=== PATIENT | female | born 1945 | race Caucasian/White ===

== ENCOUNTER 2021-01-22 17:45 | Emergency (ER) | payer MEDICARE, SELFPAY ==
--- NOTE | ~2021-01-22 | XR_ITS ---
XR foot RT 2V 01/22/2021 19:08 Indication: Post reduction right third toe Procedure: 2 views right foot Comparison: 01/22/2021 Findings: Interval reduction of the third digit at the MTP joint. There is an ossific density medial to the joint, likely an avulsion fracture. Otherwise, no significant change. Possible healed stress f racture of the third metatarsal. Polyarticular osteoarthritis. Impression: 1: Anatomic alignment of the right third toe post reduction of the MTP joint. Small ossific density m edial to the joint likely reflects an avulsion fracture. Reviewed, dictated and finalized at location A. ER SPREADER Impression: 1: Anatomic alignment of the right third toe post reduction of the MTP joint. S mall ossific density medial to the joint likely reflects an avulsion fracture.
--- NOTE | ~2021-01-22 | XR_ITS ---
XR foot RT min 3V 01/22/2021 18:28 Indication: Right foot pain at MTP joints Procedure: 4 views right foot Comparison: No prior studies for comparison. Findings: There is moderate osteoarthritis of the first MTP joint with mild hallux valgus. There is s ubluxation of the third proximal phalanx at the MTP joint. There are prominent degenerative calcaneal enthesophytes and ossification of the Achilles tendon insertion. Moderate polyarticular degenerative change of the midfoot, MTP joints and IP joints. There is periosteal reaction along the third metata rsal which may reflect a healed stress fracture. Lisfranc joint intact. No acute fracture or traumati c malalignment. 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 Reviewed, dictated and finalized at location A. 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
[2021-01-22 17:50] VITALS: BP 131/60; PULSE 72; RESP 16; TEMP 36.7; O2SAT 99
[2021-01-22 18:56] VITALS: BP 130/70; PULSE 70; RESP 18; TEMP 36.7; O2SAT 99
--- NOTE | 2021-01-22 19:16 | ED.GENADULT ---
HPI - General Adult General Chief complaint: Extremity Injury, Lower Stated complaint: fall, right foot pain Time Seen by Provider: 01/22/21 18:14 Source: patient Mode of arrival: wheelchair Limitations: no limitations History of Present Illness HPI narrative: Patient presents with chief complaint of pain to her right second through fourth toes after tripping while trying to lay on the palate and getting her foot stuck. Patient reports that her toes appear deformed. She reports they are very tender. Patient denies any other injuries. Related Data Home Medications Medication Instructions Recorded Confirmed Cranberry Chews 01/22/21 allopurinol 300 mg PO DAILY 01/22/21 amlodipine-benazepril [Lotrel] 1 cap PO DAILY 01/22/21 ascorbic acid (vitamin C) [Vitamin 1 g PO Q6H 01/22/21 C] famotidine 10 mg PO BID 01/22/21 folic acid 0.4 mg PO DAILY 01/22/21 hydrochlorothiazide 12.5 mg PO DAILY 01/22/21 iron 65 tablet PO 01/22/21 ketoprofen 200 mg PO DAILY 01/22/21 potassium citrate 2,160 mg PO BID 01/22/21 vitamin B complex [B 1 tablet PO DAILY 01/22/21 Complex-Vitamin B12] Allergies Allergy/AdvReac Type Severity Reaction Status Date / Time amlodipine Allergy Other Verified 01/22/21 18:38 anastrozole Allergy Other Verified 01/22/21 18:38 carvedilol Allergy Other Verified 01/22/21 18:38 esomeprazole [From Nexium] Allergy Other Verified 01/22/21 18:38 iohexol Allergy Other Verified 01/22/21 18:38 [From contrast - CT, X-RAY] letrozole Allergy Other Verified 01/22/21 18:38 methenamine Allergy Rash Verified 01/22/21 18:38 montelukast Allergy Unknown Verified 01/22/21 18:38 valsartan [From Exforge] Allergy Unknown Verified 01/22/21 18:38 omeprazole AdvReac Headache Verified 01/22/21 18:38 silk tape Allergy Rash Uncoded 01/22/21 18:38 D-Mannose AdvReac Nausea and Uncoded 01/22/21 18:38 Vomiting Review of Systems Review of Systems: Narrative: CONSTITUTIONAL: Denies fever, chills, or sweats. EYES: Denies visual changes, redness, or discharge. ENT: Denies rhinorrhea, congestion, sore throat, or otalgia. CARDIOVASCULAR: Denies chest pain, palpitations, or edema. RESPIRATORY: Denies cough or dyspnea. GASTROINTESTINAL: Denies abdominal pain, nausea, vomiting, or diarrhea. GENITOURINARY: Denies dysuria or hematuria. SKIN: Denies rash or itching. MUSCULOSKELETAL: Reports right toe pain and deformity denies back pain or myalgia. NEUROLOGIC: Denies headache, numbness, dizziness, or weakness. PSYCHIATRIC: Denies anxiety or depression. Exam Narrative: Exam Narrative: GENERAL: Well-appearing, well-nourished, and in no acute distress. HEAD: Normocephalic, atraumatic. EYES: PERRLA and EOMI. NECK: Supple. Range of motion intact. CHEST: Clear to auscultation. No respiratory distress. No wheezes rales or rhonchi HEART: Regular rate and rhythm. EXTREMITIES:Ecchymosis to right 2-4th toes. Appear deformed and hyperflexed 2nd and 3rd. Patient likely has some chronic bert to toes as well. SKIN: Warm, dry, no rash. NEURO: No focal deficits. Alert and oriented x3. PSYCH: Normal mood and affect. Course Vital Signs Vital signs: Vital Signs Temperature 98.0 F 01/22/21 17:50 Pulse Rate 72 01/22/21 17:50 Respiratory Rate 16 01/22/21 17:50 Blood Pressure 131/60 01/22/21 17:50 Pulse Oximetry 99 01/22/21 17:50 Temperature 98.0 F 01/22/21 18:56 Pulse Rate 70 01/22/21 18:56 Respiratory Rate 18 01/22/21 18:56 Blood Pressure 130/70 01/22/21 18:56 Pulse Oximetry 99 01/22/21 18:56 Procedures Orthopedic Joint Reduction Joint #1: Side: right Joint Reduction Location: toe (3rd) Analgesia: none Pre-Procedure Neuro Vascular Exam: normal Technique used: traction/counter-traction Post-reduction neuro exam: intact Post-reduction vascular: intact Post Reduction X-Ray Obtained: Yes Post Reduction X-Ray Results: reduced
--- NOTE | 2021-01-22 19:28 | PC.NURSE ---
patient refused crutchs stating she has a walker at home which is easier for her to use.
[2021-01-22 20:14] VITALS: BP 142/68; PULSE 78; RESP 18; O2SAT 99
== END 2021-01-22 20:16 | disposition home or self-care (01) ==
LOC: ANHED 19:36
PROVIDERS: Emergency Provider Emergency Medicine; PCP Family Medicine
DX: S93.104A Unspecified dislocation of right toe(s), initial encounter (principal); W18.40XA Slipping, tripping and stumbling without falling, unspecified, initial encounter
CPT/HCPCS: 28630; 73620; 73630; 99285

== ENCOUNTER 2024-05-05 09:44 | Outpatient (CLI) | payer MEDICARE, SELFPAY ==
--- NOTE | ~2024-05-05 | CT_ITS ---
EXAMINATION: CT abdomen pelvis wo/w con DATE: 05/05/2024 10:37 INDICATION: Gross hematuria. TECHNIQUE: Computed tomography (CT) of the abdomen and pelvis was performed without and with intraven ous contrast using a total of 130 mL Omnipaque-350 intravenous contrast with a double-bolus technique for simultaneous opacification of the renal parenchyma and renal collecting system. Automated exposu re control and iterative reconstruction technique were employed. The dose-length product was 2110.92 mGy-cm. COMPARISON: None FINDINGS: The visualized portions of the lung bases demonstrate mild atelectasis. Calcified pulmonary nodules a re consistent with old granulomatous disease. No pleural effusion. The heart size is normal. No peric ardial effusion. Partially visualized is a left breast implant. Calcifications in the liver and splee n are consistent with old granulomatous disease. There are gallstones in the gallbladder, which is no rmal in size. There is a 16 mm cyst in the spleen. The pancreas and adrenal glands are normal. There are cysts in the kidneys measuring up to 3.8 cm on the right. There is cortical thinning of the kidne ys. There is no urolithiasis. The ureters are well opacified and are normal. The bladder is not well distended. There is diverticulosis of the colon without evidence of diverticulitis. There are no dila sol loops of bowel. The appendix is not visualized. There is a small sliding hiatal hernia. There are no pathologically enlarged lymph nodes. There is no free intraperitoneal fluid. There is severe thor acic and lumbar spondylosis. IMPRESSION: 1. No etiology for hematuria. Reviewed, dictated and finalized at location E.
[2024-05-05 10:09] LABS: Estimated Glomerular Filt Rate 44
== END 2024-05-05 09:45 ==
LOC: MICIMG 09:46
PROVIDERS: PCP Family Medicine; Visit Provider Physician Assistant
DX: R31.0 Gross hematuria (principal)
CPT/HCPCS: 74178; Q9967

== ENCOUNTER 2025-06-23 12:28 | Emergency (ER) | payer MEDICARE, SELFPAY ==
[2025-06-23 12:40] VITALS: BP 109/54; PULSE 74; RESP 18; TEMP 36.1; O2SAT 99
--- NOTE | 2025-06-23 12:43 | ED_ITS ---
HPI - Female Genitourinary General Chief complaint: Urogenital-Female Stated complaint: C/O PAINFUL URINATION Time Seen by Provider: 06/23/25 12:43 Source: patient and RN notes reviewed Mode of arrival: ambulatory Limitations: no limitations History of Present Illness HPI Narrative: 79-year-old female presented for complaint of burning with urination this morning, and endorses frequency and urgency over the past 3 days. Endorses a history of UTIs. Denies hematuria, nausea, vomiting, abdominal pain, flank pain, constipation, diarrhea, fevers or chills. Patient is scheduled for pituitary surgery in 5 days Related Data Home Medications ?Medication ?Instructions ?Recorded ?Confirmed ?Last Taken ?Type Cranberry Chews 01/22/21 01/29/21 Unknown History allopurinol 300 mg tablet 300 mg PO DAILY 01/22/21 01/29/21 Unknown History amlodipine 5 mg-benazepril 10 mg 1 cap PO DAILY 01/22/21 01/29/21 Unknown History capsule (Lotrel) ascorbic acid (vitamin C) 1,000 mg 1 g PO Q6H 01/22/21 01/29/21 Unknown History chewable tablet famotidine 10 mg tablet 10 mg PO BID 01/22/21 01/29/21 Unknown History folic acid 400 mcg tablet 0.4 mg PO DAILY 01/22/21 01/29/21 Unknown History hydrochlorothiazide 12.5 mg capsule 12.5 mg PO DAILY 01/22/21 01/29/21 Unknown History iron 50 mg iron tablet 65 tablet PO 01/22/21 01/29/21 Unknown History ketoprofen 200 mg 24 hr 200 mg PO DAILY 01/22/21 01/29/21 Unknown History capsule,extended release potassium citrate 10 mEq (1,080 2,160 mg PO BID 01/22/21 01/29/21 Unknown Hist ory mg) tablet,extended release vitamin B complex (B 1 tablet PO DAILY 01/22/21 01/29/21 Unknown History Complex-Vitamin B12 tablet) Allergies Allergy/AdvReac Type Severity Reaction Status Date / Time amlodipine Allergy Other Verified 06/23/25 12:29 anastrozole Allergy Other Verified 06/23/25 12:29 carvedilol Allergy Other Verified 06/23/25 12:29 esomeprazole (From Nexium) Allergy Other Verified 06/23/25 12:29 iohexol (From contrast - CT, Allergy Other Verified 06/23/25 12:29 X-RAY) letrozole Allergy Other Verified 06/23/25 12:29 methenamine Allergy Rash Verified 06/23/25 12:29 montelukast Allergy Unknown Verified 06/23/25 12:29 valsartan (From Exforge) Allergy Unknown Verified 06/23/25 12:29 omeprazole AdvReac Headache Verified 06/23/25 12:29 silk tape Allergy Rash Uncoded 06/23/25 12:29 D-Mannose AdvReac Nausea and Uncoded 06/23/25 12:29 Vomiting Review of Systems Review of Systems: CONSTITUTIONAL: Denies body aches, fever, chills, or sweats. CARDIOVASCULAR: Denies chest pain, palpitations, or edema. RESPIRATORY: Denies cough or dyspnea. GASTROINTESTINAL: Denies abdominal pain, nausea, vomiting, or diarrhea. GENITOURINARY: Reports dysuria, frequency, urgency, denies hematuria, flank pain, discharge SKIN: Denies rash, itching, or wounds. MUSCULOSKELETAL: Denies back pain or myalgia. [facility] Past Medical History Medical History Allergies Arthritis Breast cancer Endometrial cancer GERD (gastroesophageal reflux disease) Melanoma Thyroid disease Ulcer Family History Family History Mother Cancer Hypertension Heart disease Social History Social History Living arrangements: with family Occupation/Education: retired Gender identity (if verbalized by the patient): Female Comments At time of signature, I have reviewed and agree with nursing past medical, surgical, social and family history unless otherwise noted. Please see nursing chart for further information. There is no relevant family history pertinent to the presenting complaint Exam Narrative: GENERAL: Well-appearing and in no acute distress. ENT: Mucous membranes pink and moist. NECK: Normal AROM. Supple. CHEST: No respiratory distress. Clear to auscultation. HEART: Regular rate and rhythm. ABDOMEN: Soft, nontender, nondistended, normal active bowel sounds. No CVA tenderness SKIN: Warm, dry, no rash. NEURO: No focal deficits. Alert and oriented x3. Gait steady. PSYCH: Normal affect. Course Course Emergency Course: Patient is aware of diagnosis, understands and agrees to treatment plan. Anticipatory guidance given. Patient agrees to follow-up as directed and is aware of reasons to seek care at the emergency department. Portions of this record may have been created with voice recognition software Level of Care: Express Care Visit Vital Signs Vital signs: Vital Signs Temperature 96.9 F L 06/23/25 12:40 Pulse Rate 74 06/23/25 12:40 Respiratory Rate 18 06/23/25 12:40 Blood Pressure 109/54 L 06/23/25 12:40 Pulse Oximetry 99 06/23/25 12:40 Oxygen Delivery Room Air 06/23/25 12:40 Temperature 96.9 F L 06/23/25 12:40 Pulse Rate 74 06/23/25 12:40 Respiratory Rate 18 06/23/25 12:40 Blood Pressure 109/54 L 06/23/25 12:40 Pulse Oximetry 99 06/23/25 12:40 Oxygen Delivery Room Air 06/23/25 12:40 Reviewed MDM - Female Genitourinary MDM Narrative Medical decision making narrative: Discussed physical exam findings and urine dip. Shared decision-making, patient elects treatment at this time as she is scheduled for pituitary surgery in 5 days. Advised supportive measures and signs/symptoms to go to the ER. Pt is appropriate for outpt treatment and f/u. Differential Diagnosis Differential diagnosis: Likely urinary tract infection, vaginitis, cystitis and other Discharge Plan Discharge Clinical Impression: Dysuria Patient Disposition: Home Condition: Stable Instructions: Antibiotic Form, Urinary Tract Infection in Women (ED) Additional Instructions: Take the antibiotic as prescribed The urine will be sent of for a culture to identify what type of bacteria is causing your infection. If the culture shows that the antibiotic will not get rid of your infection, you will be notified and a new antibiotic will be called in for you. It may take up to 1 week for the results. Increase water intake you will need to follow up with your PCP, call to schedule an appointment. Go to the ER for any worsening symptoms or concerns Patient Language: Nepali Prescriptions: New nitrofurantoin monohyd/m-cryst [Macrobid] 100 mg capsule 100 mg PO Q12H 5 Days Qty: 10 0RF Rx Instructions: must administer with a meal/food No Action ketoprofen 200 mg Capsule,Ext Rel. Pellets 24 Hr 200 mg PO DAILY famotidine 10 mg Tablet 10 mg PO BID iron 50 mg iron Tablet 65 tablet PO folic acid 400 mcg Tablet 0.4 mg PO DAILY amlodipine-benazepril [Lotrel] 5-10 mg Capsule 1 cap PO DAILY potassium citrate 10 mEq (1,080 mg) Tablet Extended Release 2,160 mg PO BID hydrochlorothiazide 12.5 mg Capsule 12.5 mg PO DAILY vitamin B complex [B Complex-Vitamin B12] Tablet 1 tablet PO DAILY allopurinol 300 mg Tablet 300 mg PO DAILY Vitamin C 1,000 mg Tablet,Chewable 1 g PO Q6H Cranberry Chews Follow-up/Referrals: Mil,Holger Nava MD [Primary Care Provider] - Time of Disposition: 13:06
[2025-06-23 12:52] LABS: EDUAAPPEAR Clear; EDUABILI Negative (Negative); EDUABLOOD 1+ (Negative); EDUACOLOR1 Yellow; EDUAGLUCOSE Negative (Negative); EDUAKETONE Negative (Negative); EDUALEUKO Negative (Negative); EDUANITRATE Negative (Negative); EDUAPH 7.0; EDUAPROTEIN Negative (Negative); EDUASPGRAVITY 1.015; EDUAUROBILI 0.2
== END 2025-06-23 13:07 | disposition home or self-care (01) ==
PROVIDERS: Emergency Provider Nurse Practitioner Family; PCP Family Medicine
DX: R30.0 Dysuria (principal); K21.9 Gastro-esophageal reflux disease without esophagitis; M19.90 Unspecified osteoarthritis, unspecified site; E07.9 Disorder of thyroid, unspecified; Z85.3 Personal history of malignant neoplasm of breast; Z85.42 Personal history of malignant neoplasm of other parts of uterus; Z85.820 Personal history of malignant melanoma of skin
CPT/HCPCS: 81003; 87086; 99213; G0463